=== PATIENT | male | born 1940 | race Caucasian/White ===

== ENCOUNTER 2016-04-19 | Outpatient (CLI) | payer MEDICARE, BC | END 2016-04-19 09:21 | disposition critical access hospital (66) | CPT/HCPCS: A0425; A0427 ==

== ENCOUNTER 2016-04-19 09:52 | Emergency (ER) | payer MEDICARE, BC ==
[2016-04-19] MEDS ORDERED: DEXAMETHASONE 10 MG/ML VIAL PO STA (14:13)
[2016-04-19] MEDS ORDERED: cefTRIAXone 1 GM VIAL IM STA (14:13)
[2016-04-19] MEDS ORDERED: DEXAMETHASONE 10 MG/ML VIAL ONE (14:26)
[2016-04-19] MEDS ORDERED: cefTRIAXone 1 GM VIAL ONE (14:26)
[2016-04-19] MEDS ORDERED: LIDOCAINE-MPF 1% 5 ML VIAL ONE (14:26)
[2016-04-19] MEDS ORDERED: CHERRY SYRUP 10 ML UDC PO ONE (14:26)
== END 2016-04-19 15:10 | disposition home or self-care (01) ==
DX: H66.002 Acute suppurative otitis media without spontaneous rupture of ear drum, left ear (principal); R05 Cough; G20 Parkinson's disease; F02.80 Dementia in other diseases classified elsewhere, unspecified severity, without behavioral disturbance, psychotic disturbance, mood disturbance, and anxiety; I10 Essential (primary) hypertension; E03.9 Hypothyroidism, unspecified
CPT/HCPCS: 36415; 71020; 80053; 81003; 83605; 83690; 84484; 85025; 87040; 96372; 99284; A9270

== ENCOUNTER 2016-05-22 15:29 | Outpatient (CLI) | payer MEDICARE, BC | END 2016-05-22 15:30 | disposition home or self-care (01) | DX: F02.80 Dementia in other diseases classified elsewhere, unspecified severity, without behavioral disturbance, psychotic disturbance, mood disturbance, and anxiety (principal); I10 Essential (primary) hypertension; R27.8 Other lack of coordination ==

== ENCOUNTER 2016-07-24 11:09 | Outpatient (CLI) | payer MEDICARE, BC | END 2016-07-24 11:10 | disposition home or self-care (01) | DX: M12.9 Arthropathy, unspecified (principal); M85.88 Other specified disorders of bone density and structure, other site ==

== ENCOUNTER 2016-07-31 15:16 | Outpatient (CLI) | payer MEDICARE, BC ==
[2016-07-31 18:24] LABS: BASOPHILS % (AUTO) 0.2 %; EOSINOPHILS # (AUTO) 0.4 10^3/uL (0.0-0.7); EOSINOPHILS % (AUTO) 4.1 %; HGB - HEMOGLOBIN 11.8 g/dL (14.0-18.0); MEAN CORPUSCULAR HEMOGLOBIN 30.2 pg (27.0-31.0); MEAN CORPUSCULAR HGB CONC 32.6 g/dL (32.0-36.0); MEAN CORPUSCULAR VOLUME 92.4 fL (80.0-94.0); MONOCYTES # (AUTO) 1.1 10^3/uL (0.0-1.0); MONOCYTES % (AUTO) 10.7 %; NEUTROPHILS # (AUTO) 7.8 10^3/uL (1.5-6.6); RED CELL DISTRIBUTION WIDTH 13.7 % (12.0-15.0); UNCORRECTED WHITE BLOOD COUNT 10.3 x10^3/uL; WHITE BLOOD COUNT 10.3 x10^3/uL (4.8-10.8)
[2016-07-31 18:29] LABS: ALBUMIN/GLOBULIN RATIO 0.7 (1.0-2.2); BILIRUBIN,TOTAL 0.5 mg/dL (0.2-1.0); CALCIUM 9.1 mg/dL (8.5-10.3); CREATININE 0.8 mg/dL (0.6-1.2); POTASSIUM 3.9 mmol/L (3.5-5.0); TOTAL PROTEIN 6.9 g/dL (6.7-8.2)
== END 2016-07-31 15:17 | disposition home or self-care (01) ==
LOC: LAB.F 15:16
PROVIDERS: ATTEND Internal Medicine
DX: R41.0 Disorientation, unspecified (principal)
CPT/HCPCS: 36415; 80053; 84443; 85025

== ENCOUNTER 2016-08-12 15:29 | Outpatient (CLI) | payer MEDICARE, BC | END 2016-08-12 15:30 | disposition home or self-care (01) | LOC: LAB.F 15:29 | PROVIDERS: ATTEND Internal Medicine | DX: F03.90 Unspecified dementia, unspecified severity, without behavioral disturbance, psychotic disturbance, mood disturbance, and anxiety (principal) | CPT/HCPCS: 36415; 80048 ==

== ENCOUNTER 2016-08-19 14:21 | Outpatient (CLI) | payer MEDICARE, BC ==
[2016-08-19 18:39] LABS: CALCIUM 8.9 mg/dL (8.5-10.3); CREATININE 0.8 mg/dL (0.6-1.2); POTASSIUM 4.3 mmol/L (3.5-5.0)
== END 2016-08-19 14:22 | disposition home or self-care (01) ==
LOC: LAB.F 14:21
PROVIDERS: ATTEND Internal Medicine
DX: F03.90 Unspecified dementia, unspecified severity, without behavioral disturbance, psychotic disturbance, mood disturbance, and anxiety (principal)
CPT/HCPCS: 36415; 80048

== ENCOUNTER 2017-08-16 06:39 | Outpatient (CLI) | payer MEDICARE, BC | END 2017-08-16 06:40 | disposition critical access hospital (66) | LOC: EMS 06:39 | PROVIDERS: ATTEND Surgery | DX: R51 Headache (principal); M54.2 Cervicalgia; M54.9 Dorsalgia, unspecified; R41.82 Altered mental status, unspecified; W19.XXXA Unspecified fall, initial encounter; Y92.099 Unspecified place in other non-institutional residence as the place of occurrence of the external cause | CPT/HCPCS: A0425; A0429 ==

== ENCOUNTER 2017-08-16 07:04 | Observation (INO) | payer MEDICARE, BC ==
[2017-08-16] MEDS ORDERED: SODIUM CHLORIDE 0.9% 1,000 ML IV ONE ×2 (07:14→08:43)
[2017-08-16] MEDS ORDERED: ACETAMINOPHEN 1,000 MG/100 ML 100 ML IV STA (07:14)
--- NOTE | 2017-08-16 07:17 | ED Physician Documentation ---
PD HPI ALTERED MENTAL STATUS - Stated complaint Stated Complaint: GLF - Chief complaint Chief Complaint: General - History obtained from History obtained from: Patient, Family, EMS, Caregiver - History of Present Illness Timing - onset: Today (found on floor this morning, unknown time of fall nor cause. Smell of urine so presume on floor for awhile.), Unknown Timing - details: Other (unknown symptoms or cause as patient is not talkative, just looking dazedly around.) Quality / character: Less responsive, Confused, Other ( told EMS the patient has seemed generally weaker the past few days. No vomiting reported.). No: Agitated, Combative Associated symptoms: No: Fever, Focal weakness Contributing factors: No: Anticoagulated, Diabetic, Recent illness (through EMS , the had told them the patient had been at baseline and then found on floor this morning, diminished alertness and interaction. Not speaking this morning.) Basline status: Confused, Assisted living ([facility]) Similar symptoms before: Has not had sx before Recently seen: Not recently seen Review of Systems Unable to obtain: AMS Constitutional: denies: Fever Neurologic: reports: Generalized weakness, Altered mental status. denies: Focal weakness PD PAST MEDICAL HISTORY - Past Medical History Cardiovascular: Hypertension, High cholesterol Endocrine/Autoimmune: HyPOthyroidism : Benign prostate hypertrophy - Past Surgical History General: Gastric surgery - Present Medications Home Medications: Ambulatory Orders Medication Instructions Recorded Confirmed Cholecalciferol (Vitamin D3) 1,000 unit PO DAILY 01/18/14 08/16/17 [Vitamin D] Acetaminophen 650 mg PO Q4H PRN 08/16/17 08/16/17 Atorvastatin Calcium 10 mg PO QPM 08/16/17 08/16/17 Donepezil HCl 5 mg PO BID 08/16/17 08/16/17 Krill/Om-3/Dha/Epa/Phospho/Ast 500 mg PO DAILY 08/16/17 08/16/17 [Krill Oil 500 mg Softgel] Levothyroxine Sodium 100 mcg PO QDAC 08/16/17 08/16/17 Pyridostigmine [place] [Mestinon] 60 mg PO 0600,1000,1400 08/16/17 08/16/17 Triamcinolone 0.1% Cream [Kenalog 1 applic TOP DAILY 08/16/17 08/16/17 0.1% Cream] Vitamin B Complex 1 tab PO DAILY 08/16/17 08/16/17 - Allergies Allergies/Adverse Reactions: Allergies Allergy/AdvReac Type Severity Reaction Status Date / Time No Known Drug Allergies Allergy Unverified 06/26/14 10:27 - Social History Does the pt smoke?: No Smoking Status: Never smoker Does the pt drink ETOH?: No Does the pt have substance abuse?: No - Immunizations Immunizations are current?: No PD ED PE NORMAL - Vitals Vital signs reviewed: Yes - General General: No acute distress (calm and not seeming in pain. Does not answer verbally, but will nod yes/no to simple questions, sometimes needing repeated. Blank look at surroundings. ), Well developed/nourished (though currently unkempt hair and smells of urine on clothes.) - HEENT HEENT: Atraumatic, Pharynx benign - Neck Neck: Supple, no meningeal sign, No bony TTP, No adenopathy - Cardiac Cardiac: RRR, No murmur - Respiratory Respiratory: Clear bilaterally - Abdomen Abdomen: Soft, Non distended, No organomegaly, Other (tender RUQ abd and right lower ribs, without crepitance nor deformity. No percussion tenderness evident ( looking for frown and guarding as response to pain).) - Male Male : Deferred - Rectal Rectal: Deferred - Back Back: No spinal TTP - Derm Derm: Normal color, Warm and dry - Neuro Neuro: sawmill hand 2-12 intact, No sensory deficit, Other (general weakness but symmetric movements. Answers his name, but nods no when asked if he knows where he is. ) Eye Opening: Spontaneous Motor: Obeys Commands Verbal: Confused GCS Score: 14 - Psych Psych: No: Normal affect (very flat) Results - Vitals Vitals: Vital Signs - 24 hr 08/16/17 08/16/17 07:05 10:01 Temperature 37.3 C 36.4 C L Heart Rate 66 70 Respiratory 16 14 Rate Blood Pressure 116/72 133/70 H O2 Saturation 97 96 Oxygen O2 Source Room air - Labs Labs: Laboratory Tests 08/16/17 08/16/17 08/16/17 08:10 08:10 08:10 WBC 13.4 H RBC 4.15 L Hgb 12.9 L Hct 39.2 L MCV 94.4 H MCH 31.2 H MCHC 33.0 RDW 13.9 Plt Count 191 MPV 7.4 Neut # (Auto) 11.4 H Lymph # (Auto) 0.6 L [place]son # (Auto) 1.3 H Eos # (Auto) 0.0 Baso # (Auto) 0.0 Absolute Nucleated RBC 0.00 Nucleated RBC % 0.0 Sodium 138 Potassium 4.2 Chloride 100 L Carbon Dioxide 31 Anion Gap 7.0 BUN 30 H Creatinine 0.9 Estimated GFR (MDRD) 82 L Glucose 141 H Lactic Acid Calcium 9.1 Magnesium 2.1 Total Bilirubin 1.1 H AST 43 H ALT 23 Alkaline Phosphatase 68 Total Creatine Kinase 699 H Troponin I 0.04 Total Protein 7.3 Albumin 3.3 Globulin 4.0 Albumin/Globulin Ratio 0.8 L Lipase 21 L Urine Color Urine Clarity Urine pH Ur Specific [place] Urine Protein Urine Glucose (UA) Urine Ketones Urine Occult Blood Urine Nitrite Urine Bilirubin Urine Urobilinogen Ur Leukocyte Esterase Urine RBC Urine WBC Ur Epithelial Cells Ur Squamous Epith Cells Amorphous Sediment Urine Bacteria Urine Casts Urine Mucus Ur Microscopic Review Urine Culture Comments 08/16/17 08/16/17 08:10 09:40 WBC RBC Hgb Hct MCV MCH MCHC RDW Plt Count MPV Neut # (Auto) Lymph # (Auto) Anson # (Auto) Eos # (Auto) Baso # (Auto) Absolute Nucleated RBC Nucleated RBC % Sodium Potassium Chloride Carbon Dioxide Anion Gap BUN Creatinine Estimated GFR (MDRD) Glucose Lactic Acid 1.2 Calcium Magnesium Total Bilirubin AST ALT Alkaline Phosphatase Total Creatine Kinase Troponin I Total Protein Albumin Globulin Albumin/Globulin Ratio Lipase Urine Color YELLOW Urine Clarity HAZY Urine pH 5.0 Ur Specific [place] >=1.030 H Urine Protein 100 H Urine Glucose (UA) NEGATIVE Urine Ketones NEGATIVE Urine Occult Blood MODERATE H Urine Nitrite NEGATIVE Urine Bilirubin NEGATIVE Urine Urobilinogen 0.2 (NORMAL) Ur Leukocyte Esterase NEGATIVE Urine RBC 0-5 Urine WBC 0-3 Ur Epithelial Cells MANY Transitional H Ur Squamous Epith Cells FEW Squamous Amorphous Sediment Marked Urine Bacteria Moderate H Urine Casts 0-2 Granular Casts Urine Mucus Marked Strands Ur Microscopic Review INDICATED Urine Culture Comments INDICATED - Rads (name of study) head CT Radiology: Prelim report reviewed (age related changes, no acute), EMP read contemporaneously chest/abd CT Radiology: Prelim report reviewed (enlarged/distended gallbladder with stranding ; mild free fluid around the liver. ) PD MEDICAL DECISION MAKING - ED course Complexity details: reviewed results (Seems concerning for general weakness with collapse and/or syncope. He does seem dehydrated and is given IV fluids with improvement in his mentation. He has an elevated CK presumably from being on the floor for a bit but is only 600. He does not have a urinary infection. His head CT is okay except for age-related changes. He has consistent right upper quadrant abdominal tenderness and a CT showing enlarged gallbladder with stranding. I will present this to surgery and medicine regarding further evaluation.), re-evaluated patient (Patient more alert but still disoriented and minimally verbal, but sounds perhaps more to baseline by EMS report. not here. He is still having considerable RUQ tenderness with guarding. CT showing enlarged CG with stranding. ), d/w presales consultant (I am concerned about the general state of wellness with the weakness and collapse. To evaluate on medical aspects and he would want medical evaluation for other processes first before discussion of gallbladder. Consult Hospitalist, ? Surgery. ), other ( talked with hospitalist who will see patient. ) - Sepsis Event Vital Signs: Vital Signs - 24 hr 08/16/17 08/16/17 07:05 10:01 Temperature 37.3 C 36.4 C L Heart Rate 66 70 Respiratory 16 14 Rate Blood Pressure 116/72 133/70 H O2 Saturation 97 96 Oxygen O2 Source Room air Departure - Departure Disposition: ED Place in Observation Clinical Impression: Generalized weakness, Syncope and collapse, RUQ abdominal pain, Elevated creatine kinase level Abdominal contusion Qualifiers: Encounter type: initial encounter Qualified Code(s): S30.1XXA - Contusion of abdominal wall, initial encounter Condition: Stable Record reviewed to determine appropriate education?: Yes Discharge Date/Time: 08/16/17 12:01
[2017-08-16] MEDS ORDERED: IOPAMIDOL-300 100 ML VIAL ONE (07:42)
[2017-08-16 08:21] LABS: BASOPHILS % (AUTO) 0.3 %; HGB - HEMOGLOBIN 12.9 g/dL (14.0-18.0); LYMPHOCYTES # (AUTO) 0.6 10^3/uL (1.5-3.5); LYMPHOCYTES % (AUTO) 4.5 %; MEAN CORPUSCULAR HEMOGLOBIN 31.2 pg (27.0-31.0); MEAN CORPUSCULAR VOLUME 94.4 fL (80.0-94.0); MEAN PLATELET VOLUME 7.4 fL (7.4-11.4); MONOCYTES # (AUTO) 1.3 10^3/uL (0.0-1.0); MONOCYTES % (AUTO) 9.8 %; NEUTROPHILS # (AUTO) 11.4 10^3/uL (1.5-6.6); NEUTROPHILS % (AUTO) 85.4 %; PLT - PLATELET COUNT 191 10^3/uL (130-450); RED BLOOD COUNT 4.15 10^6/uL (4.70-6.10); RED CELL DISTRIBUTION WIDTH 13.9 % (12.0-15.0); WHITE BLOOD COUNT 13.4 x10^3/uL (4.8-10.8)
[2017-08-16 08:29] LABS: ALBUMIN 3.3 g/dL (3.2-5.5); ALBUMIN/GLOBULIN RATIO 0.8 (1.0-2.2); BILIRUBIN,TOTAL 1.1 mg/dL (0.2-1.0); CALCIUM 9.1 mg/dL (8.5-10.3); CREATININE 0.9 mg/dL (0.6-1.2); MAGNESIUM 2.1 mg/dL (1.7-2.8); TOTAL PROTEIN 7.3 g/dL (6.7-8.2)
[2017-08-16] MEDS ORDERED: IOPAMIDOL-300 100 ML VIAL IVP ONE (09:12)
--- NOTE | 2017-08-16 09:31 | CT Preliminary Report ---
Exam: CT CHEST W/ IMPRESSION: Basilar atelectasis (right greater than left. Small right pleural effusion. No dawood contusion. No definite rib fracture. [facility] SITE ID: [id number]
--- NOTE | 2017-08-16 09:37 | CT Preliminary Report ---
Exam: CT ABDOMEN/PELVIS W/ IMPRESSION: 1. Free fluid tracking anterior to the liver, uncertain origin. 2. The gallbladder is diffusely dilated with pericholecystic stranding. No duct dilation. No stones p resent. Reference additional comments above. [facility] SITE ID: [id number]
--- NOTE | 2017-08-16 09:41 | CT Report ---
EXAM: CT HEAD EXAM DATE: 08/16/2017 08:53 AM. CLINICAL HISTORY: Fall and altered mental status. COMPARISON: 06/26/2014. TECHNIQUE: Multiaxial CT images were obtained from the foramen magnum to the vertex. Reformats: Coron al. IV contrast: None. In accordance with CT protocol optimization, one or more of the following dose reduction techniques w ere utilized for this exam: automated exposure control, adjustment of mA and/or KV based on patient s ize, or use of iterative reconstructive technique. FINDINGS: Parenchyma: No intraparenchymal hemorrhage. No evidence of mass, midline shift, or CT findings of acu te infarction. Espinosa-white differentiation is distinct. There are extensive areas of white matter hypo attenuation, as seen on the prior exam. Extraaxial Spaces: Normal for age. No subdural or epidural collections identified. Ventricles: The ventricles and cortical sulci are enlarged. The degree of ventricular enlargement aniket ears greater than the degree of sulcal enlargement, similar to prior exam. Sinuses and orbits: There is a small amount of free fluid in the partially visualized right maxillary sinus. The remainder of visualized paranasal sinuses and mastoid air cells are clear. The orbits are unremarkable. Bones: No evidence of fracture or calvarial defect. Other: None. IMPRESSION: 1. No intracranial hemorrhage, mass effect, CT evidence of acute infarct, or other acute change sue red to 06/26/2014. 2. Similar appearance of extensive white matter hypodensities, which may reflect extensive microangio pathic disease or other chronic process. 3. Disproportionate ventricular enlargement compared to the cortical sulci. This may be a sign of nor mal pressure hydrocephalus. The appearance is unchanged compared to the prior exam on 06/26/2014. [facility] Referring Provider Line: [phone] SITE ID: [id number]
--- NOTE | 2017-08-16 09:44 | CT Report ---
EXAM: CT CHEST EXAM DATE: 08/16/2017 09:13 AM. CLINICAL HISTORY: Fall with tenderness right ribs. COMPARISONS: None. TECHNIQUE: Routine helical CT imaging was performed through the chest. IV contrast: None. Reconstruct ions: Coronal and sagittal. In accordance with CT protocol optimization, one or more of the following dose reduction techniques w ere utilized for this exam: automated exposure control, adjustment of mA and/or KV based on patient s ize, or use of iterative reconstructive technique. FINDINGS: Lungs/Pleura: Mild basilar atelectasis and pleural fluid. Minimal left basilar atelectasis. No pneumo thorax. No dawood contusion. Mediastinum: Atherosclerotic calcifications affiliated with the aorta and coronary arteries. No aneur ysm. No mediastinal nor hilar adenopathy. Bones: Mildly demineralized. No definite fracture. IMPRESSION: Basilar atelectasis (right greater than left). Small right pleural effusion. No dawood contusion. No definite rib fracture. [facility] Referring Provider Line: [phone] SITE ID: [id number]
--- NOTE | 2017-08-16 09:44 | CT Report ---
EXAM: CT ABDOMEN AND PELVIS EXAM DATE: 08/16/2017 09:13 AM. CLINICAL HISTORY: Fall with tenderness right upper quadrant. COMPARISONS: None. TECHNIQUE: Routine helical CT imaging was performed through the abdomen and pelvis. IV contrast: 100 mL Isovue-300. Enteric contrast: No. Reconstructions: Coronal and sagittal. In accordance with CT protocol optimization, one or more of the following dose reduction techniques w ere utilized for this exam: automated exposure control, adjustment of mA and/or KV based on patient s ize, or use of iterative reconstructive technique. FINDINGS: Small amount of free fluid tracking anterior to the liver. Liver: No masses. Gallbladder/bile Ducts: Dilated. Stranding of the fat around the gallbladder, chronicity uncertain. C holecystitis not excluded. No intra- nor extrahepatic ductal dilation. Spleen: Multiple calcifications affiliated with the spleen consistent with healed granulomatous disea se. Pancreas: Normal. Adrenal Glands: Normal. Kidneys: Nonobstructive left renal calyceal stone measuring 8 mm. Otherwise unremarkable. No hydronep hrosis nor perinephric stranding. Peritoneal Cavity/Bowel: Moderate stool in the colon. Scattered diverticula without evidence for acti ve diverticulitis. No free air or pneumatosis. A few shotty mesenteric, retroperitoneal and pelvic ly mph nodes without dawood adenopathy. Pelvic Organs: Grossly unremarkable. Vasculature: Atherosclerotic calcifications affiliated with the aorta and visceral arteries without a neurysmal dilation. Bones: Diffuse demineralization. Degenerative changes most notable at the lumbosacral spine. IMPRESSION: 1. Free fluid tracking anterior to the liver, uncertain origin. 2. The gallbladder is diffusely dilated with pericholecystic stranding. No duct dilation. No stones p resent. Reference additional comments above. [facility] Referring Provider Line: [phone] SITE ID: [id number]
[2017-08-16 09:50] LABS: BILIRUBIN,URINE NEGATIVE (NEGATIVE); GLUCOSE, URINE (UA) NEGATIVE (NEGATIVE); KETONES,URINE (UA) NEGATIVE (NEGATIVE); LEUKOCYTE ESTERASE, URINE NEGATIVE (NEGATIVE); NITRITE,URINE NEGATIVE (NEGATIVE); OCCULT BLOOD,URINE MODERATE (NEGATIVE); PROTEIN,URINE 100 mg/dL (NEGATIVE); UROBILINOGEN,URINE 0.2 (NORMAL) E.U./dL (NORMAL)
[2017-08-16 09:54] LABS: CLARITY,URINE HAZY (CLEAR)
[2017-08-16 10:28] LABS: RBC,URINE 0-5 /HPF (0-5); SQUAMOUS EPITHELIAL CELL,UR FEW Squamous (<= Few)
[2017-08-16 10:29] LABS: AMORPHOUS SEDIMENT,UR Marked /LPF; BACTERIA,URINE Moderate /HPF (None Seen); EPITHELIAL CELLS,UR MANY Transitional /HPF (<= Few)
[2017-08-16 10:30] LABS: MUCUS,URINE Marked Strands
[2017-08-16] MEDS ORDERED: AMPICILLIN/SULBACTAM 1.5 GM in SODIUM CHLORIDE 0.9% MINIBAG 100 ML IV STA (10:37)
[2017-08-16] MEDS ORDERED: SODIUM CHLORIDE FLUSH 0.9% 10 ML SYRINGE IVP PRN (11:12)
[2017-08-16] MEDS ORDERED: DONEPEZIL 5 MG TABLET PO SCH (12:00)
[2017-08-16] MEDS: PYRIDOSTIGMINE BROMIDE 60 MG TABLET PO SCH (15:27)
[2017-08-16] MEDS: SODIUM CHLORIDE FLUSH 0.9% 10 ML SYRINGE IVP SCH (16:04)
--- NOTE | 2017-08-16 17:54 | HISTORY & PHYSICAL EXAMINATION ---
Chief Complaint - Chief Complaint Chief Complaint: Fall History of Present Illness - Admitted From Admitted From:: [facility] - History Obtained From History obtained from: Ed physician, Pt's grandson Exam Limitations: Pt has advanced dementia - History of Present Illness HPI Comment/Other: Mr. Fermin Hubbard is a 76-year-old gentleman with advanced dementia who lives at the [facility]. In addition to his dementia the patient has Shy-Drager syndrome and also has never been someone who would drink a lot of fluids and so it is not unusual for this patient to become hypotensive , dehydrated, and to have near syncopal events. The patient was found on the floor at the [facility] and sent into the emergency department where he was evaluated and found to be slightly dehydrated and to have an elevated CK, presumably related to laying on the floor. He is also tender in the right rib cage, again presumed to be related to his fall. We will admit the patient to observation, give him IV fluids, and if he remains stable we will discharge him home tomorrow. History - Past Medical History Cardiovascular: reports: Hypertension, High cholesterol Respiratory: reports: None Neuro: reports: Alzhiemer's Endocrine/Autoimmune: reports: HyPOthyroidism GI: reports: None : reports: Benign prostate hypertrophy HEENT: reports: None Psych: reports: Anxiety Musculoskeletal: reports: None Derm: reports: None MRSA Hx?: No - Past Surgical History General: reports: Gastric surgery - Family & Social History Family History: Mother: (Mother of complications of cirrhosis from drinking), Father: , CAD, Hyperlipidemia, Hypertension, [place], Sister : Alive and Well, Brother: Alive and Well Living arrangement: Assisted living Living Situation: With caregiver(s) - Substance History Use: Uses substance without health or social issues: NONE Abuse: Recurrent use of substance despite neg consequences: NONE Dependence: Experiences withdrawal or developed tolerances: NONE - POLST Patient has POLST: Yes POLST Status: DNR Meds/Allgy - Home Medications Home Medications: Ambulatory Orders Medication Instructions Recorded Confirmed Cholecalciferol (Vitamin D3) 1,000 unit PO DAILY 01/18/14 08/16/17 [Vitamin D] Acetaminophen 650 mg PO Q4H PRN 08/16/17 08/16/17 Atorvastatin Calcium 10 mg PO QPM 08/16/17 08/16/17 Donepezil HCl 5 mg PO BID 08/16/17 08/16/17 Krill/Om-3/Dha/Epa/Phospho/Ast 500 mg PO DAILY 08/16/17 08/16/17 [Krill Oil 500 mg Softgel] Levothyroxine Sodium 100 mcg PO QDAC 08/16/17 08/16/17 Pyridostigmine [place] [Mestinon] 60 mg PO 0600,1000,1400 08/16/17 08/16/17 Triamcinolone 0.1% Cream [Kenalog 1 applic TOP DAILY 08/16/17 08/16/17 0.1% Cream] Vitamin B Complex 1 tab PO DAILY 08/16/17 08/16/17 - Allergies Allergies/Adverse Reactions: Allergies Allergy/AdvReac Type Severity Reaction Status Date / Time No Known Drug Allergies Allergy Unverified 06/26/14 10:27 Review of Systems - Constitutional Constitutional: reports: Fatigue, Malaise, Weakness, Other (Please note, the patient has advanced dementia and cannot participate in a review of systems. Review of systems answers are based on answers from the patient's family and caregivers.). denies: Fever, Chills - Ears, Nose & Throat Ears, Nose & Throat: reports: Hearing loss. denies: Vertigo, Nosebleeds, Bleeding gums - Cardiovascular Cariovascular: denies: Edema, Syncope, Exertional dyspnea - Respiratory Respiratory: denies: Cough, Sputum production, Wheezing, Snoring, Hemoptysis - Gastrointestinal Gastrointestinal: denies: Abdominal distention, Constipation, Diarrhea, Change in bowel habits, Rectal bleeding - Genitourinary Genitourinary: reports: Incontinence. denies: Hematuria, Urethral discharge - Musculoskeletal Musculoskeletal: reports: Limited range of motion. denies: Gout, Joint swelling - Integumentary Integumentary: denies: Rash, Lesions, Acne, Pigment changes, Nail changes - Neurological Neurological: reports: General weakness, Memory problems, Other (Advanced dementia). denies: Focal weakness - Psychiatric Psychiatric: denies: Suicidal, Homicidal - Hematologic/Lymphatic Hematologic/Lymphatic: denies: Bruising, Petechiae, Lymphadenopathy - All Other Systems All Other Systems: reports: Reviewed and negative Exam - Vital Signs Reviewed Vital Signs: Yes Vital Signs: Vital Signs x48h Temp Pulse Pulse Resp BP BP Pulse Ox 08/16/17 15:59 37.2 C 73 16 107/53 L 97 08/16/17 11:54 59 L 14 131/73 H 96 - Physical Exam General Appearance: positive: No acute distress, Alert Eyes Bilateral: positive: Normal inspection, PERRL, EOMI, No lid inflammation, Conjunctivae nml, No scleral icterus ENT: positive: ENT inspection nml, Pharynx nml, No signs of dehydration Neck: positive: Nml inspection, Thyroid nml, No JVD, Trachea midline. negative : Thyromegaly Respiratory: positive: Chest non-tender, No respiratory distress, Breath sounds nml. negative: Wheezes, Rales, Rhonchi Cardiovascular: positive: Regular rate & rhythm, No murmur, No gallop Peripheral Pulses: positive: 1+ Abdomen: positive: Non-tender, No organomegaly, Nml bowel sounds, No distention. negative: Guarding, Rebound Back: positive: Nml inspection. negative: CVA tenderness (R), CVA tenderness (L ) Skin: positive: Color nml, No rash, Warm, Dry. negative: Cyanosis Extremities: positive: Non-tender, Full ROM, Nml appearance, No pedal edema Neurologic/Psychiatric: positive: Disoriented to person, Disoriented to place, Disoriented to time, Weakness Conclusion/Plan - Problem List (1) Shy-Drager syndrome Conclusion/Plan: The patient has orthostatic hypotension from the Shy-Drager syndrome and this contributed to his fall today. He is currently taking Mestinon presumably for this orthostatic hypotension as he has no history of myasthenia gravis. We will transfuse him with IV fluids and correct any dehydration but otherwise anticipate discharging the patient tomorrow after monitoring him tonight. (2) Hyperlipidemia Conclusion/Plan: We will continue the patient on his 8 atorvastatin and omega-3/krill complex tablets. (3) Abdominal contusion Conclusion/Plan: Some stranding was seen on an imaging exam around the patient's gallbladder however after discussing the case at length with Dr. Jason, he does not feel that this is pathognomonic for cholecystitis and says that this is not a surgical case. Qualifiers: Encounter type: initial encounter Qualified Code(s): S30.1XXA - Contusion of abdominal wall, initial encounter (4) Advanced dementia Conclusion/Plan: We will continue the patient on donepezil for his Alzheimer's dementia. - Lab Results Lab results reviewed: Yes Fish Bones: 08/16/17 08:10 08/16/17 08:10 - Diagnostic Imaging Results Diagnostic Imaging Results Comments: EXAM: CT HEAD EXAM DATE: 08/16/2017 08:53 AM. CLINICAL HISTORY: Fall and altered mental status. COMPARISON: 06/26/2014. TECHNIQUE: Multiaxial CT images were obtained from the foramen magnum to the vertex. Reformats: Coronal. IV contrast: None. In accordance with CT protocol optimization, one or more of the following dose reduction techniques were utilized for this exam: automated exposure control, adjustment of mA and/or KV based on patient size, or use of iterative reconstructive technique. FINDINGS: Parenchyma: No intraparenchymal hemorrhage. No evidence of mass, midline shift, or CT findings of acute infarction. Espinosa-white differentiation is distinct. There are extensive areas of white matter hypoattenuation, as seen on the prior exam. Extraaxial Spaces: Normal for age. No subdural or epidural collections identified. Ventricles: The ventricles and cortical sulci are enlarged. The degree of ventricular enlargement appears greater than the degree of sulcal enlargement, similar to prior exam. Sinuses and orbits: There is a small amount of free fluid in the partially visualized right maxillary sinus. The remainder of visualized paranasal sinuses and mastoid air cells are clear. The orbits are unremarkable. Bones: No evidence of fracture or calvarial defect. Other: None. IMPRESSION: 1. No intracranial hemorrhage, mass effect, CT evidence of acute infarct, or other acute change compared to 06/26/2014. 2. Similar appearance of extensive white matter hypodensities, which may reflect extensive microangiopathic disease or other chronic process. 3. Disproportionate ventricular enlargement compared to the cortical sulci. This may be a sign of normal pressure hydrocephalus. The appearance is unchanged compared to the prior exam on 06/26/2014. EXAM: CT CHEST EXAM DATE: 08/16/2017 09:13 AM. CLINICAL HISTORY: Fall with tenderness right ribs. COMPARISONS: None. TECHNIQUE: Routine helical CT imaging was performed through the chest. IV contrast: None. Reconstructions: Coronal and sagittal. In accordance with CT protocol optimization, one or more of the following dose reduction techniques were utilized for this exam: automated exposure control, adjustment of mA and/or KV based on patient size, or use of iterative reconstructive technique. FINDINGS: Lungs/Pleura: Mild basilar atelectasis and pleural fluid. Minimal left basilar atelectasis. No pneumothorax. No dawood contusion. Mediastinum: Atherosclerotic calcifications affiliated with the aorta and coronary arteries. No aneurysm. No mediastinal nor hilar adenopathy. Bones: Mildly demineralized. No definite fracture. IMPRESSION: Basilar atelectasis (right greater than left). Small right pleural effusion. No dawood contusion. No definite rib fracture. EXAM: CT ABDOMEN AND PELVIS EXAM DATE: 08/16/2017 09:13 AM. CLINICAL HISTORY: Fall with tenderness right upper quadrant. COMPARISONS: None. TECHNIQUE: Routine helical CT imaging was performed through the abdomen and pelvis. IV contrast: 100 mL Isovue-300. Enteric contrast: No. Reconstructions: Coronal and sagittal. In accordance with CT protocol optimization, one or more of the following dose reduction techniques were utilized for this exam: automated exposure control, adjustment of mA and/or KV based on patient size, or use of iterative reconstructive technique. FINDINGS: Small amount of free fluid tracking anterior to the liver. Liver: No masses. Gallbladder/bile Ducts: Dilated. Stranding of the fat around the gallbladder, chronicity uncertain. Cholecystitis not excluded. No intra- nor extrahepatic ductal dilation. Spleen: Multiple calcifications affiliated with the spleen consistent with healed granulomatous disease. Pancreas: Normal. Adrenal Glands: Normal. Kidneys: Nonobstructive left renal calyceal stone measuring 8 mm. Otherwise unremarkable. No hydronephrosis nor perinephric stranding. Peritoneal Cavity/Bowel: Moderate stool in the colon. Scattered diverticula without evidence for active diverticulitis. No free air or pneumatosis. A few shotty mesenteric, retroperitoneal and pelvic lymph nodes without dawood adenopathy. Pelvic Organs: Grossly unremarkable. Vasculature: Atherosclerotic calcifications affiliated with the aorta and visceral arteries without aneurysmal dilation. Bones: Diffuse demineralization. Degenerative changes most notable at the lumbosacral spine. IMPRESSION: 1. Free fluid tracking anterior to the liver, uncertain origin. 2. The gallbladder is diffusely dilated with pericholecystic stranding. No duct dilation. No stones present. - EKG Results EKG Interpreted Independently: Yes EKG Comparison: Old EKG unavailable EKG Findings: Normal sinus rhythm, rate 65. No ischemic changes noted. Core Measures - Anticipated LOS I expect patient to be DC'd or transferred within 96 hours.: Yes - DVT/VTE - Prophylaxis VTE/DVT Device ordered at admit?: Yes
[2017-08-16] MEDS: DONEPEZIL 5 MG TABLET PO SCH (20:56)
[2017-08-17] MEDS: SODIUM CHLORIDE FLUSH 0.9% 10 ML SYRINGE IVP SCH ×2 (00:17→08:03)
[2017-08-17] MEDS: PYRIDOSTIGMINE BROMIDE 60 MG TABLET PO SCH ×2 (05:15→08:05)
[2017-08-17 05:57] LABS: HGB - HEMOGLOBIN 11.6 g/dL (14.0-18.0); MEAN CORPUSCULAR HEMOGLOBIN 30.9 pg (27.0-31.0); MEAN CORPUSCULAR HGB CONC 32.7 g/dL (32.0-36.0); MEAN CORPUSCULAR VOLUME 94.4 fL (80.0-94.0); MEAN PLATELET VOLUME 7.3 fL (7.4-11.4); RED BLOOD COUNT 3.75 10^6/uL (4.70-6.10); RED CELL DISTRIBUTION WIDTH 13.6 % (12.0-15.0)
[2017-08-17 06:02] LABS: CALCIUM 8.5 mg/dL (8.5-10.3); CREATININE 0.9 mg/dL (0.6-1.2)
[2017-08-17] MEDS: DONEPEZIL 5 MG TABLET PO SCH (08:02)
[2017-08-17 08:47] VITALS: BP 117/51
[2017-08-17] MEDS ORDERED: D5.45NS W/20 MEQ KCL 1,000 ML IV SCH (09:00)
[2017-08-17] MEDS ORDERED: POLYETHYLENE GLYCOL 3350 17 GM PACKET PO SCH (09:00)
--- NOTE | 2017-08-17 10:42 | Discharge Plan ---
Discharge Plan for SNF / [facility] - DC Plan and Transition Orders Disposition: 01 Home, Self Care Condition: Stable SNF Transition Orders: Admit to: [facility] [place] under the care of Chandrakant Amin Discharge Diagnosis: Dehydration/Fall Medicare Certification: I certify that [facility] care is medically necessary on a continuing basis for any of the conditions for which she/he is receiving care during hospitalization. Notify PCP of admission and forward orders to primary provider for signature. Weight on admission and weekly. Call PCP immediately if weight increases by 10 pounds or if patient develops dyspnea, chest pain/tightness or edema. House Bowel Program: yes If no BM after 2 days, nurse may give M.O.M. 30ml PO PRN and /or ducolax Supp 1 AR and /or DUARTE 250mg P.O., and/or senna 1-2 tabs PO. On day 3 nurse may give repeat above order until residents constipation is resolved. Immunizations: Annual Influenza Vaccine: yes. (between Nov 07 and June 06.) Unless allergy or already given Two-Step PPD: yes per [facility] [phone] or appropriate documentation of approved exceptions Oxygen Orders: 2 l/m via [place] PRN SOB Medications: PLEASE REFER TO THE DISCHARGE MEDICATION LIST. Allergies and Adverse Reactions: Allergies Allergy/AdvReac Type Severity Reaction Status Date / Time No Known Drug Allergies Allergy Unverified 06/26/14 10:27 - Diet Type: Geriatric Texture: Mech soft Liquids: Thin Follow Up: With Dr Amin in 1 week.
--- NOTE | 2017-08-17 12:15 | DISCHARGE SUMMARY ---
Discharge Summary Admit Date: 08/16/17 Discharge Date: 08/17/17 Discharging Provider: Nicole Medina DO Primary Care Provider: Chandrakant Amin Code Status: Do Not Attempt Resuscitation Condition at Discharge: Stable Discharge Disposition: 01 Home, Self Care Discharge Facility Name: [facility] - DIAGNOSES Admission Diagnoses: 1. Shy-Drager syndrome 2. Hyperlipidemia 3. Abdominal contusion 4. Advanced dementia Discharge Diagnoses with Status of Each Condition: 1. Shy-Drager syndrome- The patient's hypotension has been fairly well- managed. He was dehydrated and this also contributed to his hypotension which almost certainly contributed to his fall. We have restarted him on the Mestinon and he is doing well. 2. Hyperlipidemia- We have continued the patient on his atorvastatin and omega- 3 Krill complex tablets; he will resume these at the assisted living facility. 3. Abdominal contusion- The patient's pain has been well managed and there have not been any complications with regards to the contusion. 4. Advanced dementia- The patient seems a little bit more oriented today however he still very demented. No new problems. He will return to the assisted-living facility. - HPI History of Present Illness: Mr. Fermin Hubbard is a 76-year-old gentleman with advanced dementia who lives at the [facility]. In addition to his dementia the patient has Shy-Drager syndrome and also has never been someone who would drink a lot of fluids and so it is not unusual for this patient to become hypotensive , dehydrated, and to have near syncopal events. The patient was found on the floor at the [facility] and sent into the emergency department where he was evaluated and found to be slightly dehydrated and to have an elevated CK, presumably related to laying on the floor. He is also tender in the right rib cage, again presumed to be related to his fall. We will admit the patient to observation, give him IV fluids, and if he remains stable we will discharge him home tomorrow. - HOSPITAL COURSE Hospital Course: The patient was admitted and placed in telemetry bed overnight. He did not have any significant arrhythmias overnight and was given IV fluids to help with his dehydration. This morning he is more awake, alert and says he feels good. He denies any new problems. He will be returned to [facility] at this time. - ALLERGIES Allergies/Adverse Reactions: Allergies Allergy/AdvReac Type Severity Reaction Status Date / Time No Known Drug Allergies Allergy Unverified 06/26/14 10:27 - MEDICATIONS Home Medications: Ambulatory Orders Medication Instructions Recorded Confirmed Cholecalciferol (Vitamin D3) 1,000 unit PO DAILY 01/18/14 08/16/17 [Vitamin D3] Acetaminophen 650 mg PO Q4H PRN 08/16/17 08/16/17 Atorvastatin Calcium 10 mg PO QPM 08/16/17 08/16/17 Donepezil HCl 5 mg PO BID 08/16/17 08/16/17 Krill/Om-3/Dha/Epa/Phospho/Ast 500 mg PO DAILY 08/16/17 08/16/17 [Krill Oil 500 mg Softgel] Levothyroxine Sodium 100 mcg PO QDAC 08/16/17 08/16/17 Pyridostigmine [place] [Mestinon] 60 mg PO 0600,1000,1400 08/16/17 08/16/17 Triamcinolone 0.1% Cream [Kenalog 1 applic TOP DAILY 08/16/17 08/16/17 0.1% Cream] Vitamin B Complex 1 tab PO DAILY 08/16/17 08/16/17 - PHYSICAL EXAM AT DISCHARGE General Appearance: positive: No acute distress, Alert Eyes Bilateral: positive: Normal inspection, PERRL, EOMI, No lid inflammation, Conjunctivae nml, No scleral icterus ENT: positive: ENT inspection nml, Pharynx nml, No signs of dehydration Neck: positive: Nml inspection, Thyroid nml, No JVD, Trachea midline. negative : Thyromegaly Respiratory: positive: Chest non-tender, No respiratory distress, Breath sounds nml. negative: Wheezes, Rales, Rhonchi Cardiovascular: positive: Regular rate & rhythm, No murmur, No gallop Peripheral Pulses: positive: 1+ Abdomen: positive: Non-tender, No organomegaly, Nml bowel sounds, No distention. negative: Guarding, Rebound Back: positive: Nml inspection. negative: CVA tenderness (R), CVA tenderness (L ) Skin: positive: Color nml, No rash, Warm, Dry. negative: Cyanosis Extremities: positive: Non-tender, Full ROM, Nml appearance, No pedal edema Neurologic/Psychiatric: positive: CN's nml (2-12), Motor nml, Sensation nml, Mood/affect nml, Disoriented to place, Disoriented to time - LABS Result Diagrams: 08/17/17 05:47 08/17/17 05:47 - DIAGNOSTIC IMAGING Diagnostic Imaging Results: Final report reviewed Diagnostic Imaging Results Comments: EXAM: CT HEAD EXAM DATE: 08/16/2017 08:53 AM. CLINICAL HISTORY: Fall and altered mental status. COMPARISON: 06/26/2014. TECHNIQUE: Multiaxial CT images were obtained from the foramen magnum to the vertex. Reformats: Coronal. IV contrast: None. In accordance with CT protocol optimization, one or more of the following dose reduction techniques were utilized for this exam: automated exposure control, adjustment of mA and/or KV based on patient size, or use of iterative reconstructive technique. FINDINGS: Parenchyma: No intraparenchymal hemorrhage. No evidence of mass, midline shift, or CT findings of acute infarction. Espinosa-white differentiation is distinct. There are extensive areas of white matter hypoattenuation, as seen on the prior exam. Extraaxial Spaces: Normal for age. No subdural or epidural collections identified. Ventricles: The ventricles and cortical sulci are enlarged. The degree of ventricular enlargement appears greater than the degree of sulcal enlargement, similar to prior exam. Sinuses and orbits: There is a small amount of free fluid in the partially visualized right maxillary sinus. The remainder of visualized paranasal sinuses and mastoid air cells are clear. The orbits are unremarkable. Bones: No evidence of fracture or calvarial defect. Other: None. IMPRESSION: 1. No intracranial hemorrhage, mass effect, CT evidence of acute infarct, or other acute change compared to 06/26/2014. 2. Similar appearance of extensive white matter hypodensities, which may reflect extensive microangiopathic disease or other chronic process. 3. Disproportionate ventricular enlargement compared to the cortical sulci. This may be a sign of normal pressure hydrocephalus. The appearance is unchanged compared to the prior exam on 06/26/2014. EXAM: CT CHEST EXAM DATE: 08/16/2017 09:13 AM. CLINICAL HISTORY: Fall with tenderness right ribs. COMPARISONS: None. TECHNIQUE: Routine helical CT imaging was performed through the chest. IV contrast: None. Reconstructions: Coronal and sagittal. In accordance with CT protocol optimization, one or more of the following dose reduction techniques were utilized for this exam: automated exposure control, adjustment of mA and/or KV based on patient size, or use of iterative reconstructive technique. FINDINGS: Lungs/Pleura: Mild basilar atelectasis and pleural fluid. Minimal left basilar atelectasis. No pneumothorax. No dawood contusion. Mediastinum: Atherosclerotic calcifications affiliated with the aorta and coronary arteries. No aneurysm. No mediastinal nor hilar adenopathy. Bones: Mildly demineralized. No definite fracture. IMPRESSION: Basilar atelectasis (right greater than left). Small right pleural effusion. No dawood contusion. No definite rib fracture. EXAM: CT ABDOMEN AND PELVIS EXAM DATE: 08/16/2017 09:13 AM. CLINICAL HISTORY: Fall with tenderness right upper quadrant. COMPARISONS: None. TECHNIQUE: Routine helical CT imaging was performed through the abdomen and pelvis. IV contrast: 100 mL Isovue-300. Enteric contrast: No. Reconstructions: Coronal and sagittal. In accordance with CT protocol optimization, one or more of the following dose reduction techniques were utilized for this exam: automated exposure control, adjustment of mA and/or KV based on patient size, or use of iterative reconstructive technique. FINDINGS: Small amount of free fluid tracking anterior to the liver. Liver: No masses. Gallbladder/bile Ducts: Dilated. Stranding of the fat around the gallbladder, chronicity uncertain. Cholecystitis not excluded. No intra- nor extrahepatic ductal dilation. Spleen: Multiple calcifications affiliated with the spleen consistent with healed granulomatous disease. Pancreas: Normal. Adrenal Glands: Normal. Kidneys: Nonobstructive left renal calyceal stone measuring 8 mm. Otherwise unremarkable. No hydronephrosis nor perinephric stranding. Peritoneal Cavity/Bowel: Moderate stool in the colon. Scattered diverticula without evidence for active diverticulitis. No free air or pneumatosis. A few shotty mesenteric, retroperitoneal and pelvic lymph nodes without dawood adenopathy. Pelvic Organs: Grossly unremarkable. Vasculature: Atherosclerotic calcifications affiliated with the aorta and visceral arteries without aneurysmal dilation. Bones: Diffuse demineralization. Degenerative changes most notable at the lumbosacral spine. IMPRESSION: 1. Free fluid tracking anterior to the liver, uncertain origin. 2. The gallbladder is diffusely dilated with pericholecystic stranding. No duct dilation. No stones present. - FOLLOW UP Follow Up: Follow-up with your primary care physician in 1 week. - TIME SPENT Time Spent in Discharge (Minutes): 40
== END 2017-08-17 13:10 | disposition home or self-care (01) ==
LOC: ED 07:04 → OBS 11:12
PROVIDERS: ADMIT Hospitalist; ATTEND Hospitalist
DX: G90.3 Multi-system degeneration of the autonomic nervous system (principal); E86.0 Dehydration; S30.1XXA Contusion of abdominal wall, initial encounter; W19.XXXA Unspecified fall, initial encounter; Y92.129 Unspecified place in nursing home as the place of occurrence of the external cause; G30.9 Alzheimer's disease, unspecified; F02.80 Dementia in other diseases classified elsewhere, unspecified severity, without behavioral disturbance, psychotic disturbance, mood disturbance, and anxiety; I10 Essential (primary) hypertension; R40.2412 Glasgow coma scale score 13-15, at arrival to emergency department; K82.8 Other specified diseases of gallbladder; E78.5 Hyperlipidemia, unspecified; E03.9 Hypothyroidism, unspecified; Z79.899 Other long term (current) drug therapy; Z66 Do not resuscitate
CPT/HCPCS: 36415; 51701; 70450; 71260; 74177; 80048; 80053; 81001; 82550; 83605; 83690; 83735; 84484; 85025; 85027; 87086; 93005; 96365; 96367; 99284; A9270; G0378; J0131; Q9967; 81003

== ENCOUNTER 2017-08-18 20:46 | Outpatient (CLI) | payer MEDICARE, BC | END 2017-08-18 20:47 | disposition critical access hospital (66) | LOC: EMS 20:46 | PROVIDERS: ATTEND Surgery | DX: R41.82 Altered mental status, unspecified (principal); R45.1 Restlessness and agitation; R50.9 Fever, unspecified | CPT/HCPCS: A0425; A0429 ==

== ENCOUNTER 2017-08-18 21:11 | Emergency (ER) | payer MEDICARE, BC ==
[2017-08-18] MEDS ORDERED: SODIUM CHLORIDE 0.9% 1,000 ML IV ONE ×2 (21:37→21:39)
[2017-08-18 21:43] LABS: BASOPHILS % (AUTO) 0.2 %; HGB - HEMOGLOBIN 13.1 g/dL (14.0-18.0); LYMPHOCYTES # (AUTO) 0.4 10^3/uL (1.5-3.5); LYMPHOCYTES % (AUTO) 3.5 %; MEAN CORPUSCULAR HEMOGLOBIN 30.9 pg (27.0-31.0); MEAN CORPUSCULAR HGB CONC 32.6 g/dL (32.0-36.0); MEAN PLATELET VOLUME 7.7 fL (7.4-11.4); MONOCYTES % (AUTO) 9.5 %; NEUTROPHILS # (AUTO) 9.6 10^3/uL (1.5-6.6); NEUTROPHILS % (AUTO) 86.8 %; PLT - PLATELET COUNT 206 10^3/uL (130-450); RED BLOOD COUNT 4.23 10^6/uL (4.70-6.10); RED CELL DISTRIBUTION WIDTH 13.8 % (12.0-15.0); WHITE BLOOD COUNT 11.1 x10^3/uL (4.8-10.8)
[2017-08-18 21:58] LABS: ALBUMIN 2.6 g/dL (3.2-5.5); ALBUMIN/GLOBULIN RATIO 0.6 (1.0-2.2); BILIRUBIN,TOTAL 1.2 mg/dL (0.2-1.0); CALCIUM 8.4 mg/dL (8.5-10.3); CREATININE 1.1 mg/dL (0.6-1.2); TOTAL PROTEIN 6.8 g/dL (6.7-8.2)
[2017-08-18 22:39] LABS: BILIRUBIN,URINE NEGATIVE (NEGATIVE); GLUCOSE, URINE (UA) NEGATIVE (NEGATIVE); KETONES,URINE (UA) NEGATIVE (NEGATIVE); LEUKOCYTE ESTERASE, URINE NEGATIVE (NEGATIVE); NITRITE,URINE NEGATIVE (NEGATIVE); OCCULT BLOOD,URINE LARGE (NEGATIVE); PH,URINE 5.5 PH (5.0-7.5); PROTEIN,URINE 100 mg/dL (NEGATIVE); UROBILINOGEN,URINE 4 E.U./dL (NORMAL)
[2017-08-18 22:44] LABS: CLARITY,URINE CLEAR (CLEAR)
[2017-08-18 22:51] LABS: AMORPHOUS SEDIMENT,UR Few /LPF; BACTERIA,URINE Rare /HPF (None Seen); MUCUS,URINE Few Strands; SQUAMOUS EPITHELIAL CELL,UR NONE SEEN (<= Few)
--- NOTE | 2017-08-19 00:44 | Ultrasound Report ---
Procedure Date: 08/18/2017 Accession Number: [id number] / [id number] Procedure: US - Abdomen Limited CPT Code: FULL RESULT: EXAM: ABDOMEN ULTRASOUND LIMITED, RUQ EXAM DATE: 08/18/2017 11:50 PM. CLINICAL HISTORY: Gallbladder disease, elevated bilirubin, fever. COMPARISON: None. TECHNIQUE: Real-time scanning was performed with static images obtained. FINDINGS: Liver: Normal in size and echotexture. 16.3 cm. Main portal vein flow: Hepatopetal. Gallbladder: No gallstones. The gallbladder wall is thickened to 4 mm. There is a small amount of gallbladder sludge. Trace pericholecystic fluid also present. Biliary System: CBD measures 3 mm. No intrahepatic or extrahepatic ductal dilatation. Other: No right hydronephrosis. The visualized pancreas is unremarkable. There is mild to moderate right upper quadrant ascites. IMPRESSION: 1. Thickened gallbladder without evidence of cholelithiasis. This is a nonspecific finding and may be secondary to primary gallbladder or chronic liver disease. No associated biliary dilatation. 2. Mild to moderate right upper quadrant ascites. RADIA
[2017-08-19] MEDS ORDERED: cefTRIAXone 1 GM in SODIUM CHLORIDE 0.9% MINIBAG 100 ML IV STA (01:39)
[2017-08-19] MEDS ORDERED: levoFLOXacin 750 MG/150 ML 750 MG/150 ML BAG IV STA (01:40)
--- NOTE | 2017-08-19 01:58 | ED Physician Documentation ---
History of Present Illness - Stated complaint Stated Complaint: AMS - Chief complaint Chief Complaint: Neuro - History obtained from History obtained from: Patient, EMS - History of Present Illness Timing: Chronic - Additonal information Additional information: Patient is a 76 year old male with severe dementia, liver disease, dni/dnr limited interventions who was [facility] in by the [facility] for presumed altered mental status. patient was recently seen and admitted to the hospital. Diagnostics at that time were relatively unremarkable and patient was sent home yesterday. patient was sent back to the ER today for fever and confusion. Review of Systems Unable to obtain: Dementia PD PAST MEDICAL HISTORY - Past Medical History Cardiovascular: Hypertension, High cholesterol Respiratory: None Neuro: Alzhiemer's Endocrine/Autoimmune: HyPOthyroidism GI: None : Benign prostate hypertrophy HEENT: None Psych: Anxiety Musculoskeletal: None Derm: None - Past Surgical History Past Surgical History: Yes General: Gastric surgery - Present Medications Home Medications: Ambulatory Orders Medication Instructions Recorded Confirmed Cholecalciferol (Vitamin D3) 1,000 unit PO DAILY 01/18/14 08/16/17 [Vitamin D3] Acetaminophen 650 mg PO Q4H PRN 08/16/17 08/16/17 Atorvastatin Calcium 10 mg PO QPM 08/16/17 08/16/17 Donepezil HCl 5 mg PO BID 08/16/17 08/16/17 Krill/Om-3/Dha/Epa/Phospho/Ast 500 mg PO DAILY 08/16/17 08/16/17 [Krill Oil 500 mg Softgel] Levothyroxine Sodium 100 mcg PO QDAC 08/16/17 08/16/17 Pyridostigmine [place] [Mestinon] 60 mg PO 0600,1000,1400 08/16/17 08/16/17 Triamcinolone 0.1% Cream [Kenalog 1 applic TOP DAILY 08/16/17 08/16/17 0.1% Cream] Vitamin B Complex 1 tab PO DAILY 08/16/17 08/16/17 Levofloxacin [Levaquin] 750 mg PO DAILY #4 tablet 08/19/17 - Allergies Allergies/Adverse Reactions: Allergies Allergy/AdvReac Type Severity Reaction Status Date / Time No Known Drug Allergies Allergy Unverified 06/26/14 10:27 - Social History Does the pt smoke?: No Smoking Status: Never smoker Does the pt drink ETOH?: No Does the pt have substance abuse?: No - Immunizations Immunizations are current?: No - POLST Patient has POLST: Yes POLST Status: DNR PD ED PE NORMAL - Vitals Vital signs reviewed: Yes - HEENT HEENT: Atraumatic - Cardiac Cardiac: RRR, No murmur - Abdomen Abdomen: Soft, Non distended - Derm Derm: Normal color, Warm and dry - Extremities Extremities: No deformity - Neuro Eye Opening: Spontaneous PD ED PE EXPANDED - HEENT HEENT: Dry mucous membranes - Respiratory Respiratory: Decreased breath sounds, Right lower lobe, Left lower lobe - Neuro Neuro: Confused, Other (demented but moving all extremities) Results - Vitals Vitals: Vital Signs - 24 hr 08/18/17 08/18/17 08/19/17 21:12 23:17 01:24 Temperature 38.8 C H Heart Rate 92 88 84 Respiratory 14 31 H 25 H Rate Blood Pressure 140/74 H 126/61 105/57 L O2 Saturation 94 94 94 Oxygen O2 Source Room air - Labs Labs: Laboratory Tests 08/18/17 08/18/17 08/18/17 21:26 21:30 21:30 WBC 11.1 H RBC 4.23 L Hgb 13.1 L Hct 40.2 L MCV 95.0 H MCH 30.9 MCHC 32.6 RDW 13.8 Plt Count 206 MPV 7.7 Neut # (Auto) 9.6 H Lymph # (Auto) 0.4 L [place] # (Auto) 1.0 Eos # (Auto) 0.0 Baso # (Auto) 0.0 Absolute Nucleated RBC 0.01 Nucleated RBC % 0.0 Sodium 143 Potassium 4.1 Chloride 108 Carbon Dioxide 27 Anion Gap 8.0 BUN 33 H Creatinine 1.1 Estimated GFR (MDRD) 65 L Glucose 181 H Lactic Acid Calcium 8.4 L Total Bilirubin 1.2 H AST 78 H ALT 52 Alkaline Phosphatase 113 Troponin I Total Protein 6.8 Albumin 2.6 L Globulin 4.2 Albumin/Globulin Ratio 0.6 L Lipase 20 L TSH Urine Color Urine Clarity Urine pH Ur Specific [place] Urine Protein Urine Glucose (UA) Urine Ketones Urine Occult Blood Urine Nitrite Urine Bilirubin Urine Urobilinogen Ur Leukocyte Esterase Urine RBC Urine WBC Ur Squamous Epith Cells Amorphous Sediment Urine Bacteria Urine Mucus Ur Microscopic Review Urine Culture Comments Influenza A (Rapid) Negative Influenza B (Rapid) Negative 06/02/2308/18/17 08/18/17 21:30 21:30 21:30 WBC RBC Hgb Hct MCV MCH MCHC RDW Plt Count MPV Neut # (Auto) Lymph # (Auto) [place] # (Auto) Eos # (Auto) Baso # (Auto) Absolute Nucleated RBC Nucleated RBC % Sodium Potassium Chloride Carbon Dioxide Anion Gap BUN Creatinine Estimated GFR (MDRD) Glucose Lactic Acid 1.6 Calcium Total Bilirubin AST ALT Alkaline Phosphatase Troponin I 0.07 Total Protein Albumin Globulin Albumin/Globulin Ratio Lipase TSH 4.39 Urine Color Urine Clarity Urine pH Ur Specific [place] Urine Protein Urine Glucose (UA) Urine Ketones Urine Occult Blood Urine Nitrite Urine Bilirubin Urine Urobilinogen Ur Leukocyte Esterase Urine RBC Urine WBC Ur Squamous Epith Cells Amorphous Sediment Urine Bacteria Urine Mucus Ur Microscopic Review Urine Culture Comments Influenza A (Rapid) Influenza B (Rapid) 08/18/17 22:05 WBC RBC Hgb Hct MCV MCH MCHC RDW Plt Count MPV Neut # (Auto) Lymph # (Auto) [place] # (Auto) Eos # (Auto) Baso # (Auto) Absolute Nucleated RBC Nucleated RBC % Sodium Potassium Chloride Carbon Dioxide Anion Gap BUN Creatinine Estimated GFR (MDRD) Glucose Lactic Acid Calcium Total Bilirubin AST ALT Alkaline Phosphatase Troponin I Total Protein Albumin Globulin Albumin/Globulin Ratio Lipase TSH Urine Color DARK YELLOW Urine Clarity CLEAR Urine pH 5.5 Ur Specific [place] 1.025 Urine Protein 100 H Urine Glucose (UA) NEGATIVE Urine Ketones NEGATIVE Urine Occult Blood LARGE H Urine Nitrite NEGATIVE Urine Bilirubin NEGATIVE Urine Urobilinogen 4 H Ur Leukocyte Esterase NEGATIVE Urine RBC 6-10 H Urine WBC 0-3 Ur Squamous Epith Cells NONE SEEN Amorphous Sediment Few Urine Bacteria Rare Urine Mucus Few Strands Ur Microscopic Review INDICATED Urine Culture Comments NOT INDICATED Influenza A (Rapid) Influenza B (Rapid) - Rads (name of study) abd ultrasound Radiology: Final report received (thickend gallbladder) chest x-ray Radiology: Final report received (atelectasis vs infiltrate) PD MEDICAL DECISION MAKING - ED course Complexity details: reviewed old records, reviewed results, re-evaluated patient , considered differential ED course: Patient was seen and examined at bedside. IV access was gained and labs were drawn. Patient was treated with a fluid bolus. chest x-ray was performed and showed atelectasis vs possible infiltrate. ultrasound was performed and showed some wall thickening. Patient had been evaluated by surgery two days prior for the same findings and it was deemed secondary to liver disease not gall bladder disease. patient had no lactic acidosis and wbc count was improving. Patient was started on levaquin. retirement was called and patient was stable for [facility]arge [facility] where he would receive oral [facility]. - Sepsis Event Vital Signs: Vital Signs - 24 hr 08/18/17 08/18/17 08/19/17 21:12 23:17 01:24 Temperature 38.8 C H Heart Rate 92 88 84 Respiratory 14 31 H 25 H Rate Blood Pressure 140/74 H 126/61 105/57 L O2 Saturation 94 94 94 Oxygen O2 Source Room air Departure - Departure Disposition: 01 Home, Self Care Clinical Impression: Fever Condition: Good Instructions: ED Fever Unconf Cause Follow-Up: primary,care provider [Other] - Tomorrow Prescriptions: Levofloxacin [Levaquin] 750 mg PO DAILY #4 tablet Comments: The patient is being started on antibiotics for pneumonia. patient had his first dose here tonight and will need to be on it for the next 4 days. You can give ibuprofen for fevers and can occasionally give tylenol for fevers. you should call his doctor or the doctor preschool special education teacher if the symptoms don't improve. Patient may return to the emergency department at any time for new, worsening or uncontrollable symptoms.
[2017-08-19] MEDS ORDERED: cefTRIAXone 1 GM VIAL ONE (02:02)
[2017-08-19] MEDS ORDERED: levoFLOXacin 250 MG TABLET PO STA (02:18)
[2017-08-19] MEDS ORDERED: ACETAMINOPHEN 500 MG TABLET PO STA (02:18)
[2017-08-19] MEDS ORDERED: levoFLOXacin 250 MG TABLET ONE (02:44)
[2017-08-19 02:48] VITALS: BP 123/62
--- NOTE | 2017-08-24 09:47 | XRAY Report ---
Procedure Date: 08/18/2017 Accession Number: [id number] / [id number] Procedure: XR - Chest 1 View X-Ray CPT Code: 94211 FULL RESULT: EXAM: CHEST RADIOGRAPHY. EXAM DATE: 08/18/2017 09:44 PM. CLINICAL HISTORY: Fever, cough. COMPARISON: CT chest 08/16/2017. Chest radiograph 04/19/2016. TECHNIQUE: 1 view. FINDINGS: Lungs/Pleura: There is diffuse interstitial prominence, likely new/worse since recent prior CT. There are increasing basilar airspace opacities, right greater than left. Small right pleural effusion may have slightly enlarged. No significant left pleural effusion. No pneumothorax. Mediastinum: Within exam limitations, the cardiomediastinal contour is unchanged with normal heart size. Other: None. IMPRESSION: 1. Increasing interstitial prominence and probable increase in small right pleural effusion suggesting CHF/volume overload. 2. Increased bibasilar opacities which remain nonspecific for atelectasis versus aspiration/pneumonia. RADIA
== END 2017-08-19 02:50 | disposition home or self-care (01) ==
LOC: EDUNIT# → ED 21:11
DX: J18.9 Pneumonia, unspecified organism (principal); R50.9 Fever, unspecified; G30.9 Alzheimer's disease, unspecified; F02.80 Dementia in other diseases classified elsewhere, unspecified severity, without behavioral disturbance, psychotic disturbance, mood disturbance, and anxiety; Z66 Do not resuscitate; K76.9 Liver disease, unspecified; I10 Essential (primary) hypertension; E78.00 Pure hypercholesterolemia, unspecified; E03.9 Hypothyroidism, unspecified; N40.0 Benign prostatic hyperplasia without lower urinary tract symptoms
CPT/HCPCS: 36415; 51703; 71045; 76705; 80053; 81001; 83605; 83690; 84443; 84484; 85025; 87040; 87275; 87276; 96361; 96365; 96368; 99284; A9270; 81003; 87086

== ENCOUNTER 2017-08-19 02:54 | Outpatient (CLI) | payer MEDICARE, BC | END 2017-08-19 02:55 | disposition home or self-care (01) | LOC: EMS 02:54 | PROVIDERS: ATTEND Surgery | DX: F03.90 Unspecified dementia, unspecified severity, without behavioral disturbance, psychotic disturbance, mood disturbance, and anxiety (principal) | CPT/HCPCS: A0425; A0429 ==

== ENCOUNTER 2017-08-22 09:54 | Outpatient (CLI) | payer MEDICARE, BC | END 2017-08-22 09:55 | disposition critical access hospital (66) | LOC: EMS 09:54 | PROVIDERS: ATTEND Surgery | DX: S09.90XA Unspecified injury of head, initial encounter (principal); M25.511 Pain in right shoulder; W05.0XXA Fall from non-moving wheelchair, initial encounter; Y92.098 Other place in other non-institutional residence as the place of occurrence of the external cause | CPT/HCPCS: A0425; A0429 ==

== ENCOUNTER 2017-08-22 10:39 | Emergency (ER) | payer MEDICARE, BC ==
--- NOTE | 2017-08-22 10:55 | ED Physician Documentation ---
History of Present Illness - Stated complaint Stated Complaint: FALL - Chief complaint Chief Complaint: Back Pain - Additonal information Additional information: hx from pt 76 male per POLST DNR limited per EMS has some dementia was in wheelchair at assisted living fell over backward hit head has neck and R shoulder pain no reported LOC no blood thinners recovering from pna on lebaquin Review of Systems Constitutional: denies: Fever Ears: denies: Drainage/discharge Nose: denies: Epistaxis Cardiac: denies: Chest pain / pressure Respiratory: denies: Dyspnea GI: denies: Abdominal Pain, Vomiting Musculoskeletal: reports: Neck pain, Extremity pain Neurologic: reports: Head injury. denies: Headache Endocrine: denies: Easy bruising / bleeding Immunocompromised: denies: Immunocompromised PD PAST MEDICAL HISTORY - Past Medical History Past Medical History: Yes Cardiovascular: Hypertension, High cholesterol Respiratory: None Neuro: Alzhiemer's Endocrine/Autoimmune: HyPOthyroidism GI: None : Benign prostate hypertrophy HEENT: None Psych: Anxiety Musculoskeletal: None Derm: None - Past Surgical History Past Surgical History: Yes General: Gastric surgery - Present Medications Home Medications: Ambulatory Orders Medication Instructions Recorded Confirmed Cholecalciferol (Vitamin D3) 1,000 unit PO DAILY 01/18/14 08/16/17 [Vitamin D3] Acetaminophen 650 mg PO Q4H PRN 08/16/17 08/16/17 Atorvastatin Calcium 10 mg PO QPM 08/16/17 08/16/17 Donepezil HCl 5 mg PO BID 08/16/17 08/16/17 Krill/Om-3/Dha/Epa/Phospho/Ast 500 mg PO DAILY 08/16/17 08/16/17 [Krill Oil 500 mg Softgel] Levothyroxine Sodium 100 mcg PO QDAC 08/16/17 08/16/17 Pyridostigmine [place] [Mestinon] 60 mg PO 0600,1000,1400 08/16/17 08/16/17 Triamcinolone 0.1% Cream [Kenalog 1 applic TOP DAILY 08/16/17 08/16/17 0.1% Cream] Vitamin B Complex 1 tab PO DAILY 08/16/17 08/16/17 Levofloxacin [Levaquin] 750 mg PO DAILY #4 tablet 08/19/17 - Allergies Allergies/Adverse Reactions: Allergies Allergy/AdvReac Type Severity Reaction Status Date / Time No Known Drug Allergies Allergy Unverified 06/26/14 10:27 - Social History Does the pt smoke?: No Smoking Status: Never smoker Does the pt drink ETOH?: No Does the pt have substance abuse?: No - Immunizations Immunizations are current?: No - POLST Patient has POLST: Yes POLST Status: DNR PD ED PE NORMAL - Vitals Vital signs reviewed: Yes - General General: No: Alert and oriented X 3 (confused but cooperartive per EMS baseline) - HEENT HEENT: No: Atraumatic (small swelling posterior NT) - Neck Neck: Other (mild diffuse TTP) - Cardiac Cardiac: RRR - Respiratory Respiratory: Other (generally clear marychuy anterior) - Abdomen Abdomen: Soft - Derm Derm: Normal color - Extremities Extremities: Other (TTP sup R shoulder s deformity, MSV intact) - Neuro Neuro: No: Alert and oriented X 3 (confused) Eye Opening: Spontaneous Motor: Obeys Commands Verbal: Confused GCS Score: 14 Results - Vitals Vitals: Vital Signs - 24 hr 08/22/17 08/22/17 08/22/17 10:41 12:48 15:49 Temperature 36.9 C 37.4 C 37.1 C Heart Rate 92 97 99 Respiratory 16 18 18 Rate Blood Pressure 127/73 138/70 H 132/78 H O2 Saturation 96 94 99 Oxygen O2 Source Room air - Rads (name of study) CTH Radiology: See rad report (stable atrophy and white matter dz, no infarct or bleed, chronic sinus dz) CTCS Radiology: See rad report (no fx or listhesis, R pleural effusion) shoulder Radiology: See rad report (no fx or dislocation) CXR Radiology: See rad report (moderate R pleural effusion with right basilar airspace disease c/w atelectasis or pna increased from 4 days ago, cardiomegaly) PD MEDICAL DECISION MAKING - ED course ED course: reviewed charts seems pt fell and was seen in ER 08/16 and had marychuy atelectasis on chest CT and small FF on abd CT and was admitted for obs overnight on hospitalist service and was better and dced 08/17 per next EMP note pt also had a surgical consult for same but I do not see that consult in the EMR yet pt returned 08/19 for fever and was found to have R pleural effusion and infiltrate (rad down time so no rad report but per EMP note) was rx levaquin and dc home pt returned today 08/22 for another fall with head neck and shoulder injury - on imaging incidental note is made of worsening pleural effusion - went to reval pt - he has no chest wall tenderness, states his shortness or breath is much better on the antibiotics, he has no abd tenderness at all right now if this effusion is due to his fall 08/16 it has been slowly accumulating, there were no rib fx seen on initial injury, and pt is hemodynamically stable and this would not be a surgical emergency to effusion could also be due to his atelectasis and effusion he was sent in for head injury and from that point of view is cleared feel pt can be dced but will need close outpt follow up for another CXR - Sepsis Event Vital Signs: Vital Signs - 24 hr 08/22/17 08/22/17 08/22/17 10:41 12:48 15:49 Temperature 36.9 C 37.4 C 37.1 C Heart Rate 92 97 99 Respiratory 16 18 18 Rate Blood Pressure 127/73 138/70 H 132/78 H O2 Saturation 96 94 99 Oxygen O2 Source Room air Departure - Departure Disposition: 01 Home, Self Care Clinical Impression: Pleural effusion Head injury Qualifiers: Encounter type: initial encounter Qualified Code(s): S09.90XA - Unspecified injury of head, initial encounter Acute neck sprain Qualifiers: Encounter type: initial encounter Qualified Code(s): S13.9XXA - Sprain of joints and ligaments of unspecified parts of neck, initial encounter Shoulder sprain Qualifiers: Encounter type: initial encounter Shoulder sprain type: unspecified sprain Laterality: right Qualified Code(s): S43.401A - Unspecified sprain of right shoulder joint, initial encounter Condition: Good Instructions: ED Head Injury Closed, ED Sprain Strain Neck, ED Effusion Pleural , ED Sprain Shoulder Comments: CT scans of the head and neck and xray of the shoulder did not show any new injuries Although you are feeling better with treatment for pneumonia, the chest xray shows an increase of fluid in your right lung - right now that is not causing low oxygen levels - so it is OK to go home and finish the antibiotics as prescribed. But please follow up with your PMD for another chest xray in 2 days Discharge Date/Time: 08/22/17 16:11
--- NOTE | 2017-08-22 12:50 | XRAY Report ---
Procedure Date: 08/22/2017 Accession Number: [id number] / [id number] Procedure: XR - Shoulder 3 View RT CPT Code: FULL RESULT: EXAM: RIGHT SHOULDER RADIOGRAPHY EXAM DATE: 08/22/2017 12:43 PM. CLINICAL HISTORY: Fell out of wheelchair. COMPARISON: None. TECHNIQUE: 3 views. FINDINGS: Bones: Normal. No fracture or bone lesion. Joints: Mild acromioclavicular degenerative joint disease. Soft tissues: The visualized hemithorax is unremarkable. No soft tissue swelling. IMPRESSION: 1. Alignment normal. No fracture. Mild acromioclavicular degenerative joint disease. RADIA
--- NOTE | 2017-08-22 13:02 | CT Report ---
Procedure Date: 08/22/2017 Accession Number: [id number] / [id number] Procedure: CT - Head W/O CPT Code: FULL RESULT: EXAM: CT HEAD EXAM DATE: 08/22/2017 12:27 PM. CLINICAL HISTORY: Fell out of wheelchair. COMPARISON: Head w/o 08/16/2017. TECHNIQUE: Multiaxial CT images were obtained from the foramen magnum to the vertex. Reformats: Coronal. IV contrast: None. In accordance with CT protocol optimization, one or more of the following dose reduction techniques were utilized for this exam: automated exposure control, adjustment of mA and/or KV based on patient size, or use of iterative reconstructive technique. FINDINGS: Parenchyma: Moderate atrophy with ventriculomegaly. Moderate diffuse bilateral periventricular white matter lucencies, stable from prior. No evidence of acute intracranial hemorrhage. Espinosa-white matter junction well-preserved. Extraaxial Spaces: Moderate age-related atrophy. No hemorrhage. Sinuses and Orbits: Imaged paranasal sinuses, orbits, and mastoids show no significant abnormality. Bones: Sclerosis at the inferior right mastoid, likely chronic mastoid sinus disease. Other: None. IMPRESSION: 1. Stable atrophy and chronic age-related white matter disease. 2. No evidence of a evolving infarct or hemorrhage. 3. Chronic inferior right mastoid sinus disease. RADIA
--- NOTE | 2017-08-22 13:14 | CT Report ---
Procedure Date: 08/22/2017 Accession Number: [id number] / [id number] Procedure: CT - Cervical Spine W/O CPT Code: FULL RESULT: EXAM: CT CERVICAL SPINE WITHOUT CONTRAST DATE: 08/22/2017 12:27 PM. HISTORY: Fell out of wheelchair. COMPARISONS: Head w/o 08/16/2017. Cervical spine w/o 08/22/2017. Head w/o 08/22/2017. TECHNIQUE: Thin-section axial images were acquired of the cervical spine without contrast. Post-processing: Coronal and sagittal reformats. Other: None. In accordance with CT protocol optimization, one or more of the following dose reduction techniques were utilized for this exam: automated exposure control, adjustment of mA and/or KV based on patient size, or use of iterative reconstructive technique. FINDINGS: Alignment: No scoliosis or spondylolisthesis. Bones: No fracture or bone lesion. Interspace Levels/Facets: C1-C2: Moderate anterior arthropathy. C2-C3: Moderate left facet arthropathy. C3-C4: Mild degenerative disk disease. C4-C5: Unremarkable. C5-C6: Unremarkable. C6-C7: Moderate degenerative disk disease. C7-T1: Moderate degenerative disk disease. Musculature: Normal. No fatty atrophy. Other: The paravertebral and prevertebral soft tissues are unremarkable. Moderate right pleural effusion. IMPRESSION: 1. No fracture or listhesis. 2. Moderate multilevel degenerative spondylosis. 3. Moderate right pleural effusion. RADIA
--- NOTE | 2017-08-22 14:48 | XRAY Report ---
Procedure Date: 08/22/2017 Accession Number: [id number] / [id number] Procedure: XR - Chest 2 View X-Ray CPT Code: 96949 FULL RESULT: EXAM: CHEST RADIOGRAPHY EXAM DATE: 08/22/2017 02:07 PM. CLINICAL HISTORY: Pleural effusion on CT cervical spine. COMPARISON: Chest x-ray 08/18/2017. TECHNIQUE: 2 views. FINDINGS: Lungs/Pleura: There is a moderate right pleural effusion extending to the right hilar level with right basilar atelectasis. Some pulmonary cephalization is present. No definite pneumothorax. Mediastinum: Mild cardiomegaly with atherosclerotic calcification. Other: Surgical clips within the upper abdomen. IMPRESSION: 1. Moderate right pleural effusion with right basilar airspace disease consistent with atelectasis or pneumonia which is increased compared to the study of 4 days prior. 2. Cardiomegaly with pulmonary cephalization. RADIA
[2017-08-22 15:50] VITALS: BP 132/78
== END 2017-08-22 16:11 | disposition home or self-care (01) ==
LOC: EDUNIT# → ED 10:39
DX: J90 Pleural effusion, not elsewhere classified (principal); S09.90XA Unspecified injury of head, initial encounter; S13.9XXA Sprain of joints and ligaments of unspecified parts of neck, initial encounter; S43.401A Unspecified sprain of right shoulder joint, initial encounter; W05.0XXA Fall from non-moving wheelchair, initial encounter; Y92.199 Unspecified place in other specified residential institution as the place of occurrence of the external cause; I10 Essential (primary) hypertension; G30.9 Alzheimer's disease, unspecified; F02.80 Dementia in other diseases classified elsewhere, unspecified severity, without behavioral disturbance, psychotic disturbance, mood disturbance, and anxiety
CPT/HCPCS: 70450; 71046; 72125; 99283; 99284

== ENCOUNTER 2017-08-28 09:41 | Outpatient (CLI) | payer MEDICARE, BC | END 2017-08-28 09:42 | disposition home or self-care (01) | LOC: LAB.F 09:41 | PROVIDERS: ATTEND Internal Medicine | DX: E03.9 Hypothyroidism, unspecified (principal); Z53.21 Procedure and treatment not carried out due to patient leaving prior to being seen by health care provider | CPT/HCPCS: 36415; 80053; 84443; 85025 ==

== ENCOUNTER 2017-08-30 12:18 | Emergency (ER) | payer MEDICARE, BC ==
--- NOTE | 2017-08-30 12:33 | ED Physician Documentation ---
PD HPI Fall - Stated complaint Stated Complaint: GLF - Chief complaint Chief Complaint: Back Pain - History obtained from History obtained from: Other (Roseanna RN at [facility] by phone) - History of Present Illness Mechanism of injury: Tripped (trip in the bathroom at [facility]. Hit head on floor. No LOC.) - Treatment prior to arrival Treatment prior to arrival: Recent UTI but the culture did not grow. 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 The history is from the nurse at [facility], he has been declining and the family knows he will soon need a higher level of care, likely a memory care type facility. Review of Systems Unable to obtain: Confused PD PAST MEDICAL HISTORY - Past Medical History Cardiovascular: Hypertension, High cholesterol Respiratory: None Neuro: Alzhiemer's Endocrine/Autoimmune: HyPOthyroidism GI: None : Benign prostate hypertrophy HEENT: None Psych: Anxiety Musculoskeletal: None Derm: None - Past Surgical History Past Surgical History: Yes General: Gastric surgery - Present Medications Home Medications: Ambulatory Orders Medication Instructions Recorded Confirmed Cholecalciferol (Vitamin D3) 1,000 unit PO DAILY 01/18/14 08/16/17 [Vitamin D3] Acetaminophen 650 mg PO Q4H PRN 08/16/17 08/16/17 Atorvastatin Calcium 10 mg PO QPM 08/16/17 08/16/17 Donepezil HCl 5 mg PO BID 08/16/17 08/16/17 Krill/Om-3/Dha/Epa/Phospho/Ast 500 mg PO DAILY 08/16/17 08/16/17 [Krill Oil 500 mg Softgel] Levothyroxine Sodium 100 mcg PO QDAC 08/16/17 08/16/17 Pyridostigmine [place] [Mestinon] 60 mg PO 0600,1000,1400 08/16/17 08/16/17 Triamcinolone 0.1% Cream [Kenalog 1 applic TOP DAILY 08/16/17 08/16/17 0.1% Cream] Vitamin B Complex 1 tab PO DAILY 08/16/17 08/16/17 Levofloxacin [Levaquin] 750 mg PO DAILY #4 tablet 08/19/17 - Allergies Allergies/Adverse Reactions: Allergies Allergy/AdvReac Type Severity Reaction Status Date / Time No Known Drug Allergies Allergy Unverified 06/26/14 10:27 - Social History Does the pt smoke?: No Smoking Status: Never smoker Does the pt drink ETOH?: No Does the pt have substance abuse?: No - Immunizations Immunizations are current?: No - POLST Patient has POLST: Yes POLST Status: DNR PD ED PE NORMAL - Vitals Vital signs reviewed: Yes - General General: Other (Alert, complete disorientation.) - HEENT HEENT: PERRL, EOMI - Neck Neck: Supple, no meningeal sign, No bony TTP - Cardiac Cardiac: RRR, No murmur - Respiratory Respiratory: No respiratory distress, Clear bilaterally - Abdomen Abdomen: Normal bowel sounds, Soft, Non tender - Back Back: No CVA TTP, No spinal TTP - Extremities Extremities: No deformity, No tenderness to palpate, Normal ROM s pain, Other ( Moving hips well, no pain with internal or external rotation or pelvic pain.) - Neuro Neuro: Other (thinks he is 26yo, does not remember his occupation, Has no recollection of today's events.) Results - Vitals Vitals: Vital Signs - 24 hr 08/30/17 12:21 Temperature 36.6 C Heart Rate 88 Respiratory 14 Rate Blood Pressure 115/70 O2 Saturation 98 Oxygen O2 Source Room air - Rads (name of study) CT Head Radiology: EMP read contemporaneously (No acute disease, continued ventriculomegaly which is unchanged. And white matter disease.) PD MEDICAL DECISION MAKING - ED course ED course: 76-year-old gentleman [facility] and potential head injury. Do not see any evidence of trauma about him. The CT looks unchanged to me with some evidence and concern for normal pressure hydrocephalus which was shared with his grandson Les by phone and I gave him the number for the [facility] normal pressure hydrocephalus program and encouraged follow-up there. - Sepsis Event Vital Signs: Vital Signs - 24 hr 08/30/17 12:21 Temperature 36.6 C Heart Rate 88 Respiratory 14 Rate Blood Pressure 115/70 O2 Saturation 98 Oxygen O2 Source Room air Departure - Departure Disposition: 01 Home, Self Care Clinical Impression: Shy-Drager syndrome Head injury Qualifiers: Encounter type: initial encounter Qualified Code(s): S09.90XA - Unspecified injury of head, initial encounter Dementia Qualifiers: Dementia type: unspecified type Dementia behavioral disturbance: without behavioral disturbance Qualified Code(s): F03.90 - Unspecified dementia without behavioral disturbance Condition: Stable Comments: I discussed the potential benefit of large following up with the [facility] normal pressure hydrocephalus team and gave him their number based on head CT results.
--- NOTE | 2017-08-30 13:29 | CT Report ---
Procedure Date: 08/30/2017 Accession Number: [id number] / [id number] Procedure: CT - Head W/O CPT Code: FULL RESULT: EXAM: CT HEAD EXAM DATE: 08/30/2017 01:13 PM. CLINICAL HISTORY: Head injury with fall and confusion. COMPARISON: 08/22/2017. TECHNIQUE: Multiaxial CT images were obtained from the foramen magnum to the vertex. Reformats: Coronal. IV contrast: None. In accordance with CT protocol optimization, one or more of the following dose reduction techniques were utilized for this exam: automated exposure control, adjustment of mA and/or KV based on patient size, or use of iterative reconstructive technique. FINDINGS: Parenchyma: There is severe diffuse white matter hypodensity. Negative for acute intracranial hemorrhage. No midline shift. Extraaxial Spaces: No subdural or epidural hematoma. Ventricles: There is ventriculomegaly, dilated out of proportion to sulci. Sinuses and Orbits: Imaged paranasal sinuses, orbits, and mastoids show no significant abnormality. Bones: No evidence of fracture or calvarial defect. Other: None. IMPRESSION: 1. Negative for acute intracranial hemorrhage. 2. 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 3. Diffuse white matter disease. No interval change since recent previous. [facility]
[2017-08-30 14:17] VITALS: BP 127/84
== END 2017-08-30 14:17 | disposition home or self-care (01) ==
LOC: EDUNIT# → SUPCPDRO 12:18 → ED 12:18
DX: G90.3 Multi-system degeneration of the autonomic nervous system (principal); S09.90XA Unspecified injury of head, initial encounter; W01.0XXA Fall on same level from slipping, tripping and stumbling without subsequent striking against object, initial encounter; Y92.121 Bathroom in nursing home as the place of occurrence of the external cause; I10 Essential (primary) hypertension; G30.9 Alzheimer's disease, unspecified; F02.80 Dementia in other diseases classified elsewhere, unspecified severity, without behavioral disturbance, psychotic disturbance, mood disturbance, and anxiety; E78.00 Pure hypercholesterolemia, unspecified; E03.9 Hypothyroidism, unspecified
CPT/HCPCS: 70450; 99283

== ENCOUNTER 2017-08-30 21:58 | Outpatient (CLI) | payer MEDICARE, BC | END 2017-08-30 21:59 | disposition critical access hospital (66) | LOC: EMS 21:58 | PROVIDERS: ATTEND Surgery | DX: M25.552 Pain in left hip (principal); M54.2 Cervicalgia; W01.0XXA Fall on same level from slipping, tripping and stumbling without subsequent striking against object, initial encounter; Y92.091 Bathroom in other non-institutional residence as the place of occurrence of the external cause | CPT/HCPCS: A0425; A0429 ==